=== PATIENT | male | born 1980 | race Hispanic/Latino ===

== ENCOUNTER 2016-08-03 10:10 | Emergency (ER) | payer MEDICAID, OTHER ==
[2016-08-03 10:10] VITALS: BMI 26.6
[2016-08-03 10:14] VITALS: BP 114/76; PULSE 84; RESP 17; TEMP 98.2; O2SAT 96
--- NOTE | 2016-08-03 11:26 | RAD ---
PROCEDURE: Left Ankle Radiographs. HISTORY: twisted, lateral pain and swelling COMPARISON: None FINDINGS: BONES: Normal. No fracture. JOINTS: Normal. No osteoarthritis. Ankle mortise maintained. Talar dome intact SOFT TISSUES: Soft tissue swelling particularly on the lateral aspect. OTHER FINDINGS: None. IMPRESSION: No definite fracture. Lateral soft tissue swelling.
--- NOTE | 2016-08-03 11:34 | C.PDOC ---
History Of Present Illness 35 yr old male presents to the ER s/p sustaining a twisting injury to the left ankle 5 days ago. Patient states he was playing basketball when the injury happened. Patient reports prior history of sprains. Patient states he has been able to ambulate and reports minimal pain to the area. Patient denies LOC, change in sensations, leg pain, back pain, weakness or numbness. Time Seen by Provider: 08/03/16 10:37 Chief Complaint (Nursing): Lower Extremity Problem/Injury History Per: Patient History/Exam Limitations: no limitations Onset/Duration Of Symptoms: Days (5 days ago) Current Symptoms Are (Timing): Still Present Past Medical History Reviewed: Historical Data, Nursing Documentation, Vital Signs Vital Signs: Last Vital Signs Temp 98.2 F 08/03/16 10:13 Pulse 84 08/03/16 10:13 Resp 17 08/03/16 10:13 BP 114/76 08/03/16 10:13 Pulse Ox 96 08/03/16 12:23 - Medical History PMH: No Chronic Diseases Family History: States: No Known Family Hx - Social History Hx Tobacco Use: Yes (light smoker) Hx Alcohol Use: Yes Hx Substance Use: Yes Review Of Systems Except As Marked, All Systems Reviewed And Found Negative. Musculoskeletal: Positive for: Other ((+) Left ankle injury. ). Negative for: Back Pain, Leg Pain Neurological: Negative for: Weakness, Numbness Physical Exam - Physical Exam Appears: Well, Non-toxic, No Acute Distress Skin: Warm, Dry Head: Atraumatic, Normacephalic Extremity: No Calf Tenderness, Other (Left Ankle - Diffuse mild swelling and tenderness over the lateral malleolus with ecchymosis along the inferior border of the lateral foot. ) Neurological/Psych: Oriented x3, Normal Speech, Normal Motor ED Course And Treatment O2 Sat by Pulse Oximetry: 96 - Other Rad X-Ray - Left Ankle X-Ray: Viewed By Me, Read By Radiologist Interpretation: PROCEDURE: Left Ankle Radiographs. HISTORY: twisted, lateral pain and swelling. COMPARISON: None. FINDINGS: BONES: Normal. No fracture. JOINTS: Normal. No osteoarthritis. Ankle mortise maintained. Talar dome intact. SOFT TISSUES: Soft tissue swelling particularly on the lateral aspect. OTHER FINDINGS: None. IMPRESSION: No definite fracture. Lateral soft tissue swelling. Progress Note: X-Ray showes no fracture or displacement. Air cast applied by CP , checked by me. Patient is instructed to follow up with Ortho in 1-2 days. Medical Decision Making Medical Decision Making: PLAN: * X-Ray - Left Ankle * declined pain meds Disposition - Disposition Disposition: HOME/ ROUTINE Disposition Time: 11:30 Condition: GOOD Additional Instructions: Use air cast next 4 - 6 wks Advil or tylenol for pain as needed Instructions: Ankle Sprain (ED), Ankle Stirrup Splint (ED), Ankle Exercises ( GEN) - Clinical Impression Clinical Impression: Sprained ankle - Scribe Statement The provider has reviewed the documentation as recorded by the Jadeibe Beba Oh Provider Attestation: All medical record entries made by the Jadeibjoel were at my direction and personally dictated by me. I have reviewed the chart and agree that the record accurately reflects my personal performance of the history, physical exam, medical decision making, and the department course for this patient. I have also personally directed, reviewed, and agree with the discharge instructions and disposition.
== END 2016-08-03 11:54 | disposition home or self-care (01) ==
LOC: C.ER 10:10
DX: S93.402A Sprain of unspecified ligament of left ankle, initial encounter (principal); X50.1XXA Overexertion from prolonged static or awkward postures, initial encounter; Y93.67 Activity, basketball; Y92.89 Other specified places as the place of occurrence of the external cause

== ENCOUNTER 2017-02-25 14:11 | Emergency (ER) | payer OTHER ==
[2017-02-25 14:12] VITALS: BMI 26.6
[2017-02-25] MEDS ORDERED: Lactated Ringer's 1,000 ML IV STA (16:55)
--- NOTE | 2017-02-25 16:55 | C.PDOC ---
History Of Present Illness 36 year old male, with no significant PSHx, presents to the ED with complaints of RUQ pain since last night that is intermittent and localized. Patient notes pain is not associated with eating or movement. He states he "took someone else' s percocet" last night for pain, with some relief. Patient denies chronic medication use, fever, nausea, or vomiting. RUQ PAIN SINCE LAST NIGHT. INTERMIT LOCALIZED NO ASSOC W EATING, MOVEMENT. PSH NEG. NO FEVER NV. TOOK "SOMEONE ELSE'S PERCOCET" LAST NIGHT FOR PAIN W SOME RELIEF. DENIES CHRONIC PAIN MED USE EXAM NONTOXIC ABD +RUQ TEND MOD SOFT NO R/G REMAINDER NEG Time Seen by Provider: 02/25/17 16:42 Chief Complaint (Nursing): Abdominal Pain History Per: Patient History/Exam Limitations: no limitations Onset/Duration Of Symptoms: Days (1 day ), Intermittent Episodes Current Symptoms Are (Timing): Still Present Location Of Pain/Discomfort: RUQ Radiation Of Pain To:: None Quality Of Discomfort: "Pain" Associated Symptoms: denies: Fever, Chills, Nausea, Vomiting Exacerbating Factors: None Alleviating Factors: Other (percocet ) Recent travel outside of the [place]: No Past Medical History Reviewed: Historical Data, Nursing Documentation, Vital Signs Vital Signs: Last Vital Signs Temp 97.8 F 02/25/17 14:20 Pulse 74 02/25/17 14:20 Resp 18 02/25/17 14:20 BP 112/74 02/25/17 14:20 Pulse Ox 98 02/25/17 17:18 Family History: States: Unknown Family Hx - Social History Hx Tobacco Use: Yes (light smoker) Hx Alcohol Use: Yes Hx Substance Use: Yes - Immunization History Hx Tetanus Toxoid Vaccination: No Hx Influenza Vaccination: No Hx Pneumococcal Vaccination: No Review Of Systems Constitutional: Negative for: Fever, Chills Cardiovascular: Negative for: Chest Pain, Palpitations Respiratory: Negative for: Cough, Shortness of Breath Gastrointestinal: Positive for: Abdominal Pain. Negative for: Nausea, Vomiting , Diarrhea Physical Exam - Physical Exam Appears: Non-toxic, No Acute Distress Skin: Warm, Dry, No Rash Head: Atraumatic, Normacephalic, No Tenderness Eye(s): bilateral: Normal Inspection, PERRL, EOMI Oral Mucosa: Moist Neck: Supple Chest: Symmetrical, No Deformity Cardiovascular: Rhythm Regular, No Murmur Respiratory: No Rales, No Rhonchi, No Wheezing, Other (clear to auscultation bilaterally ) Gastrointestinal/Abdominal: Soft, Tenderness (moderate RUQ tenderness ), No Distention, No Guarding, No Rebound Extremity: Normal ROM, No Tenderness Neurological/Psych: Oriented x3 ED Course And Treatment - Laboratory Results Result Diagrams: 02/25/17 17:04 02/25/17 17:04 O2 Sat by Pulse Oximetry: 98 (RA) Pulse Ox Interpretation: Normal Progress Note: Blood work, labs, and abdomen US were ordered. Patient was given Zofran, Morphine, and lactated ringer's IV. Progress - Re-Evaluation Re-evaluation Note: 02/25/17 18:37 APPEARS COMFORTABLE NAD US REPORT REVIEWED. WILL CT - Data Reviewed Data Reviewed: Lab, Diagnostic imaging, Old records Disposition - Disposition Disposition Time: 19:00 Condition: STABLE Forms: [facility] (Azerbaijani) - Clinical Impression Clinical Impression: Abdominal pain - Scribe Statement The provider has reviewed the documentation as recorded by the Scribe Gladis Guerrero All medical record entries made by the Scribe were at my direction and personally dictated by me. I have reviewed the chart and agree that the record accurately reflects my personal performance of the history, physical exam, medical decision making, and the department course for this patient. I have also personally directed, reviewed, and agree with the discharge instructions and disposition. Physician Patient Turnover Patient Signed Over To: Leda Morales Handoff Comments: RA CT, DISPO
[2017-02-25 17:09] LABS: RBC URINE < 1 /hpf (0-3); URINE BACTERIA RARE (<OCC); URINE BILIRUBIN NEGATIVE (NEGATIVE); URINE BLOOD NEGATIVE (NEGATIVE); URINE COLOR Straw (YELLOW); URINE GLUCOSE (UA) NORMAL (Normal); URINE KETONE NEGATIVE (NEGATIVE); URINE LEUKOCYTE ESTERASE NEG Leu/uL (Negative); URINE PROTEIN NEGATIVE (NEGATIVE); URINE UROBILINOGEN NORMAL mg/dL (0.2-1.0)
[2017-02-25 17:14] LABS: BASO # 0.1 K/uL (0.0-0.2); BASO % 0.8 % (0.0-2.0); EOS # 0.4 K/uL (0.0-0.7); EOS % 4.2 % (0.0-4.0); HEMATOCRIT 43.1 % (35.0-51.0); LYMPH # 2.9 K/uL (1.0-4.3); LYMPH % 28.1 % (20.0-40.0); MEAN CELL VOLUME 84.7 fL (80.0-94.0); MEAN CORPUSCULAR HEMOGLOBIN 29.2 pg (27.0-31.0); MEAN CORPUSCULAR HGB CONC 34.5 g/dL (33.0-37.0); MEAN PLATELET VOLUME 7.7 fL (7.2-11.7); MONO # 0.8 K/uL (0.0-0.8); MONO % 7.4 % (0.0-10.0); NRBC % 0.1 % (0.0-2.0); RED CELL DISTRIBUTION WIDTH 13.2 % (11.5-14.5); WHITE BLOOD COUNT 10.3 K/uL (4.8-10.8)
[2017-02-25 17:15] LABS: CHLORIDE 97 mmol/L (98-107); SODIUM 133 mmol/L (132-148)
[2017-02-25 17:16] LABS: POTASSIUM 3.8 mmol/L (3.6-5.2)
[2017-02-25 17:17] LABS: GFR AFRICAN-AMERICAN > 60
[2017-02-25 17:18] LABS: ALB/GLOB RATIO 1.7 (1.0-2.1); ALKALINE PHOSPHATASE 39 U/L (38-126); ALT/SGPT 23 U/L (21-72); AST/SGOT 17 U/L (17-59); BILIRUBIN,TOTAL 0.8 mg/dL (0.2-1.3); BLOOD UREA NITROGEN 21 mg/dL (9-20); CALCIUM 8.3 mg/dl (8.6-10.4); CARBON DIOXIDE 26 mmol/L (22-30); GLUCOSE,RANDOM 67 mg/dL (75-110); TOTAL PROTEIN 6.7 g/dL (6.3-8.3)
--- NOTE | 2017-02-25 18:34 | US ---
HISTORY: abd pain COMPARISON: None available. TECHNIQUE: Sonographic evaluation of the right upper quadrant of the abdomen. FINDINGS: Examination limited by bowel gas. LIVER: Measures 19.5 cm in length. Echogenic liver may be seen in setting of hepatic parenchymal disease or fatty infiltration. 2.0 x 1.6 x 1.4 cm echogenic lesion is noted within the left hepatic lobe. 1.9 x 1.5 x 1.8 cm echogenic lesion is noted within the right hepatic lobe. The main portal vein appears patent with normal directional flow. No intrahepatic bile duct dilatation. GALLBLADDER: No gallstones. No gallbladder wall thickening or pericholecystic edema. Negative sonographic Villa's sign as assessed by the public relations coordinator. COMMON BILE DUCT: Measures 3 mm. PANCREAS: Not well-visualized. RIGHT KIDNEY: Measures 10.2 x 5.5 x 6.0 cm. No obstructing calculus or hydronephrosis identified. AORTA: Not well-visualized. IVC: Not well-visualized. OTHER FINDINGS: None . IMPRESSION: Limited study. Hepatomegaly. Echogenic liver may be seen in setting of hepatic parenchymal disease or fatty infiltration. Left hepatic lobe echogenic lesion measures maximally 2 cm. Right hepatic lobe echogenic lesion measures maximally 1.9 cm. Indeterminate. Possibly hemangiomas. Recommend dedicated cross-sectional imaging for further evaluation.
[2017-02-25 19:22] VITALS: TEMP 98.8
[2017-02-25] MEDS ORDERED: Iohexol 350mg/ml 100 ML ONE (19:25)
[2017-02-25 21:31] VITALS: BP 113/73; PULSE 60; RESP 16; O2SAT 98
--- NOTE | 2017-02-25 22:06 | CT ---
EXAM: CT Abdomen and Pelvis With Intravenous Contrast CLINICAL HISTORY: 36 years old, male; Pain; Abdominal pain; Generalized; Additional info: R sided abd pain RO appy TECHNIQUE: Axial computed tomography images of the abdomen and pelvis with intravenous contrast. All CT scans at this facility use one or more dose reduction techniques, viz.: automated exposure control; ma/kV adjustment per patient size (including targeted exams where dose is matched to indication; i.e. head); or iterative reconstruction technique. Coronal and sagittal reformatted images were created and reviewed. CONTRAST: 100 mL of visipaque 320 administered intravenously. COMPARISON: No relevant prior studies available. FINDINGS: Lower thorax: The bilateral lung bases are clear. ABDOMEN: Liver: Multiple areas of decreased attenuation within the liver, specifically within segments 3, 7 and 8, which most likely represent hemangiomas, for which dedicated ultrasound versus contrast-enhanced MRI may be performed for further evaluation. Gallbladder and bile ducts: The gallbladder is minimally distended, without calcified stones. No significant intra- or extrahepatic biliary ductal dilation. Pancreas: Enhances homogeneously. No ductal dilation. No discrete mass. Spleen: No acute findings. Adrenals: No acute findings. Kidneys and ureters: No acute findings. No hydronephrosis or renal calculi. No discrete solid mass. PELVIS: Bladder: No acute findings. Reproductive: No acute findings. Appendix: The appendix is of normal caliber (series 3, image 123). ABDOMEN and PELVIS: Stomach and bowel: No obstruction. No mucosal thickening. Free fluid is identified within the right lower quadrant, just lateral and inferior to a Cluster of small bowel. In addition, a serpentine shape inflammation is identified within the right mid quadrant, within the mesenteric fat (series 601, image 27), a finding consistent with epiploic appendagitis. Peritoneum: As above. Lymph nodes: No pathologically enlarged lymph nodes. Vasculature: Unremarkable. Bones: No acute fracture. IMPRESSION: Normal appendix. Findings consistent with epiploic appendicitis, with free fluid in the right mid to lower quadrant, as detailed above.
== END 2017-02-25 22:21 | disposition home or self-care (01) ==
LOC: C.ER 14:11
DX: R10.9 Unspecified abdominal pain (principal)
CPT/HCPCS: 74177; 76705; 80053; 81001; 83690; 85025; 96374; 96375; 99284; J2270; J2405; J7120; Q9967